=== PATIENT | male | born 1980 | race Caucasian/White ===

== ENCOUNTER 2017-01-04 16:41 | Emergency (ER) | payer SELFPAY ==
[2017-01-04 17:04] VITALS: BP 182/109
--- NOTE | 2017-01-04 17:51 | UC ---
Throat Pain/Nasal Erasmo HPI - HPI Summary HPI Summary: complaint of nasal congestion and cough started approx 9 days ago intermittent headaches, sore throat pressure in his forehead has been increasing producitve cough with purulent sputum cough is worse at night denies fever and chills denies ear pain right eye redness and redness that started yesterday - purulent drainage taook dayquil and nyquil without relief hasn't taken his blood pressure medciation for 3 days d/t sore throat - History of Current Complaint Chief Complaint: UCRespiratory Stated Complaint: COUGH Time Seen by Provider: 01/04/17 17:41 Hx Obtained From: Patient - Allergies/Home Medications Allergies/Adverse Reactions: Allergies Allergy/AdvReac Type Severity Reaction Status Date / Time No Known Allergies Allergy Verified 01/04/17 17:04 Home Medications: Home Medications Lisinopril/HCTZ 20/12.5(NF) [Zestoretic 20/12.5(NF)] 1 tab PO DAILY 01/04/17 [ History Confirmed 01/04/17] Pravastatin Sodium [Pravachol] 40 mg PO DAILY 01/04/17 [History Confirmed ] amLODIPine TAB* [Norvasc 5 mg TAB*] 10 mg PO DAILY 01/04/17 [History Confirmed 01/04/17] PMH/Surg Hx/FS Hx/Imm Hx Previously Healthy: Yes Cardiovascular History: Hypertension - Surgical History Surgical History: Yes Surgery Procedure, Year, and Place: gallbladder, ear tubes, tonsils - Family History Known Family History: Negative: Cardiac Disease, Hypertension, Diabetes - Social History Occupation: Employed Full-time Lives: With Family Alcohol Use: None Substance Use Type: None Smoking Status (MU): Never Smoked Tobacco Review of Systems Constitutional: Negative Skin: Negative Eyes: Drainage, Eye Redness ENT: Sore Throat, Nasal Discharge Respiratory: Cough Cardiovascular: Negative Gastrointestinal: Negative Genitourinary: Negative Motor: Negative Neurovascular: Negative Musculoskeletal: Negative Neurological: Negative Psychological: Negative All Other Systems Reviewed And Are Negative: Yes Physical Exam Triage Information Reviewed: Yes Appearance: No Pain Distress, Well-Nourished Vital Signs: Initial Vital Signs Temp 99 F 01/04/17 16:59 Pulse 91 01/04/17 16:59 Resp 16 01/04/17 16:59 BP 182/109 01/04/17 16:59 Pulse Ox 96 01/04/17 16:59 Vital Signs Reviewed: Yes Eyes: Positive: Conjunctiva Inflamed - right, Discharge - right ENT: Positive: Pharyngeal erythema, Nasal congestion, Nasal drainage, TM bulging , Other: - frontal and maxillary sinus tenderness. Negative: TM red Neck: Positive: No Lymphadenopathy Respiratory: Positive: Lungs clear, Normal breath sounds, No respiratory distress, No accessory muscle use Cardiovascular: Positive: RRR, No Murmur, Pulses Normal, Brisk Capillary Refill Abdomen Description: Positive: Nontender, Soft, Distended Bowel Sounds: Positive: Present Musculoskeletal: Positive: No Edema Neurological: Positive: Alert Psychological Exam: Normal Skin Exam: Normal Throat Pain/Nasal Course/Dx - Differential Dx/Diagnosis Differential Diagnosis/HQI/PQRI: Sinusitis, URI Provider Diagnoses: sinusitis. elevated blood pressure Discharge - Discharge Plan Condition: Stable Disposition: HOME Prescriptions: Amoxicillin/Clavulanate TAB* [Augmentin TAB 875*] 875 mg PO BID #20 tab Benzonatate CAP* [Tessalon 100 MG CAP*] 100 mg PO TID #30 cap Tobramycin (Ophth) [Tobrex] 0.3 % OP Q4HR #1 [place] Patient Education Materials: Sinusitis (ED), Conjunctivitis (ED) Referrals: Non Staff,Doctor [Primary Care Provider] - [facility] [Outside] Additional Instructions: Your blood pressure is elevated. please restart your blood pressure medication. Please contact your primary care provider within 1 -4 weeks for further evaluation. SINUSITIS What is Sinusitis? Sinusitis is inflammation or infection of the lining of the sinuses behind the bones in your cheeks or forehead. Sinusitis may occur following a common cold, flu, or other infection; allergies; a tooth infection that spreads to the sinuses; swimming in contaminated water; pressure changes in airplanes at high altitudes; violent sneezing or nose blowing or smoking or breathing other peoples smoke. Symptoms Might Include: Nasal Congestion Sneezing Watery eyes, eye irritation, or eye itching Headaches Pressure in the cheeks Wheezing Trouble smelling Sore throat and coughing may occur Treatment Recommendations: Take medicines as prescribed until completely gone. Drink plenty of fluids. Use saline nose spray to thin the mucous and help the sinuses drain. Use a vaporizer or humidifier. Apply warm compresses to the face or forehead several times a day for 10 to 20 minutes. Call Your Doctor or Return Here IF: Your pain increases during treatment. You develop a high temperature. You develop unusual swelling around the eyes. You have difficulty with your vision. You develop a severe headache, earache, or toothache. You develop increased fever or fever that does not respond to medication such as Tylenol?. You have difficulty breathing or catching your breath. You begin to have any other new symptoms that worry you.
== END 2017-01-04 18:22 | disposition home or self-care (01) ==
LOC: UCCORT 16:41
DX: J32.9 Chronic sinusitis, unspecified (principal); I10 Essential (primary) hypertension; Z90.49 Acquired absence of other specified parts of digestive tract
CPT/HCPCS: 99212; G0463